=== PATIENT | male | born 1980 | race Caucasian/White ===

== ENCOUNTER 2020-05-14 10:33 | Emergency (ER) | payer BC ==
--- NOTE | 2020-05-14 10:50 | EDM.PDOC ---
ED HPI GENERAL MEDICAL PROBLEM - General Chief Complaint: Chest Pain Stated Complaint: CHEST PAIN Time Seen by Provider: 05/14/20 10:45 Source of Information: Reports: Patient History Limitations: Reports: No Limitations - History of Present Illness INITIAL COMMENTS - FREE TEXT/NARRATIVE: HISTORY AND PHYSICAL: History of present illness: Patient is a 39-year-old male who presents to the emergency room with complaints of chest heaviness prior to arrival. He states he was sitting down when he felt like he could not get in a deep breath, describing it as a heaviness sensation in his chest. He does have a history of panic attacks although states he has not had any for over 7 years. States the sensation is similar but "could not be sure". Shortly after he did feel lightheaded, felt short of breath and called EMS. EMS gave the patient 4 baby aspirin and put 2 L per nasal cannula on due to his complaint of shortness of breath. Upon arrival to the emergency room he states he feels better and is pain-free. Review of systems: As per history of present illness and below otherwise all systems reviewed and negative. Past medical history: As per history of present illness and as reviewed below otherwise noncontributory. Surgical history: As per history of present illness and as reviewed below otherwise noncontributory. Social history: See social history for further information Family history: As per history of present illness and as reviewed below otherwise noncontributory. Physical exam: General: Well developed and well nourished. Alert and orientated x 3. Nontoxic in appearance and in no acute distress. Vital signs are stable and have been reviewed by me. Nursing notes were reviewed. HEENT: Atraumatic, normocephalic, pupils equal and reactive bilaterally, negative for conjunctival pallor or scleral icterus, mucous membranes moist, TMs normal bilaterally, throat clear, neck supple, nontender, trachea midline. No drooling or trismus noted. No meningeal signs. No hot potato voice noted. Lungs: Clear to auscultation, breath sounds equal bilaterally, chest nontender. Normal work of breathing, no accessory muscles used. Heart: S1S2, regular rate and rhythm without overt murmur Abdomen: Soft, nondistended, nontender. Negative for masses or hepatosplenomegaly. Negative for costovertebral tenderness. Pelvis: Stable nontender. Genitourinary: Deferred. Rectal: Deferred. Skin: Intact, warm, dry. No lesions or rashes noted. Hematologic: No petechiae or purpra. Mucosa appropriate color and normal nail bed color and refill. Extremities: Atraumatic, moves all extremities per self without difficulty or deficits, negative for cords or calf pain. Neurovascular unremarkable. Neuro: Awake, alert, oriented. Cranial nerves II through XII unremarkable. Cerebellum unremarkable. Motor and sensory unremarkable throughout. Exam nonfocal. Psychiatric: Mood and affect are appropriate. Normal thought process. Answering questions appropriately. Notes: 4 baby aspirin was given [employer]. EKG shows no acute findings. Patients is symptom free/pain free. Lab work is unremarkable. CXR unremarkable. Heart score is 1; low. I have spoken with the patient/caregiver and discussed today's findings, in addition to providing specific details for plan of care. Reassessment at the time of disposition demonstrates that the patient is in no acute distress. The patient has remained stable throughout the entire ED visit and is without objective evidence for acute process requiring urgent intervention or hospitalization. The patient is stable for discharge, counseling was provided and we discussed in great detail signs and symptoms that would prompt them to return to the Emergency Department. Medication, follow up and supportive care measures were reviewed and discussed. Voices understanding and is agreeable to plan of care. Denies any further questions or concerns at this time. Diagnostics: CBC, CMP, EKG, Troponin, CXR Therapeutics: None Prescription: None Impression: Nonspecific chest pain Plan: 1. Today your chest x-ray, cardiac enzymes/lab work, EKG were normal. 2. Take your Xanax as needed. Alternate Tylenol and Ibuprofen as needed for pain. 3. We encourage you to follow up with your primary care provider and/or recommended specialist in the next few days for re-evaluation and further care/management. If your symptoms should worsen, new symptoms develop or any of the signs and symptoms we discussed should arise please return to the emergency room or call 911 (if needed). Definitive disposition and diagnosis as appropriate pending reevaluation and review of above. Chest Pain Score (Numeric/FACES): 2 - Related Data Allergies Allergy/AdvReac Type Severity Reaction Status Date / Time amoxicillin Allergy Cannot Verified 05/14/20 10:41 Remember Home Meds: Home Meds ALPRAZolam [Xanax] 1 tab PO ASDIRECTED 05/14/20 [History] Empagliflozin [Jardiance] 1 tab PO DAILY 05/14/20 [History] Venlafaxine HCl 100 mg PO DAILY 05/14/20 [History] lisinopriL [Lisinopril] 40 mg PO DAILY 05/14/20 [History] metFORMIN HCl [Metformin HCl] 2,000 mg PO DAILY 05/14/20 [History] ED ROS GENERAL - Review of Systems Review Of Systems: Comprehensive ROS is negative, except as noted in HPI. ED EXAM, GENERAL - Physical Exam Exam: See Below (See dictation) Course - Vital Signs Last Recorded V/S: Last Vital Signs Temp 97.5 F 05/14/20 10:45 Pulse 95 05/14/20 11:52 Resp 16 05/14/20 11:52 BP 118/74 05/14/20 11:52 Pulse Ox 98 05/14/20 11:52 - Orders/Labs/Meds Orders: Active Orders 24 hr Category Date Time Status EKG Documentation Completion [RC] STAT Care 05/14/20 10:40 Active Labs: Laboratory Tests 05/14/20 05/14/20 Range/Units 10:54 10:54 WBC 6.33 (4.0-11.0) K/uL RBC 5.99 H (4.50-5.90) M/uL Hgb 18.0 H (13.0-17.0) g/dL Hct 50.0 (38.0-50.0) % MCV 83.5 (80.0-98.0) fL MCH 30.1 (27.0-32.0) pg MCHC 36.0 (31.0-37.0) g/dL RDW Std Deviation 38.9 (28.0-62.0) fl RDW Coeff of Sylvester 13 (11.0-15.0) % Plt Count 226 (150-400) K/uL MPV 9.70 (7.40-12.00) fL Neut % (Auto) 59.5 (48.0-80.0) % Lymph % (Auto) 33.2 (16.0-40.0) % Bates % (Auto) 5.4 (0.0-15.0) % Eos % (Auto) 1.3 (0.0-7.0) % Baso % (Auto) 0.6 (0.0-1.5) % Neut # (Auto) 3.8 (1.4-5.7) K/uL Lymph # (Auto) 2.1 (0.6-2.4) K/uL Bates # (Auto) 0.3 (0.0-0.8) K/uL Eos # (Auto) 0.1 (0.0-0.7) K/uL Baso # (Auto) 0.0 (0.0-0.1) K/uL Nucleated RBC % 0.0 /100WBC Nucleated RBCs # 0 K/uL Sodium 138 (136-148) mmol/L Potassium 3.8 (3.5-5.1) mmol/L Chloride 102 (98-107) mmol/L Carbon Dioxide 22.6 (21.0-32.0) mmol/L BUN 17 (7.0-18.0) mg/dL Creatinine 0.7 L (0.8-1.3) mg/dL Est Cr Clr Drug Dosing 149.19 mL/min Estimated GFR (MDRD) > 60.0 ml/min Glucose 271 H (74-106) mg/dL Calcium 9.7 (8.5-10.1) mg/dL Total Bilirubin 1.8 H (0.2-1.0) mg/dL AST 23 (15-37) IU/L ALT 52 (14-63) IU/L Alkaline Phosphatase 65 (46-116) U/L Troponin I < 0.050 (0.000-0.056) ng/mL Total Protein 7.3 (6.4-8.2) g/dL Albumin 4.5 (3.4-5.0) g/dL Globulin 2.8 (2.6-4.0) g/dL Albumin/Globulin Ratio 1.6 (0.9-1.6) Departure - Departure Time of Disposition: 11:55 Disposition: Home, Self-Care 01 Clinical Impression: Nonspecific chest pain Referrals: PCP,Unobtain [Primary Care Provider] - Forms: ED Department Discharge Additional Instructions: The following information is given to patients seen in the emergency department who are being discharged to home. This information is to outline your options for follow-up care. We provide all patients seen in our emergency department with a follow-up referral. The need for follow-up, as well as the timing and circumstances, are variable depending upon the specifics of your emergency department visit. If you don't have a primary care physician on staff, we will provide you with a referral. We always advise you to contact your personal physician following an emergency department visit to inform them of the circumstance of the visit and for follow-up with them and/or the need for any referrals to a consulting sp ecialist. The emergency department will also refer you to a specialist when appropriate. This referral assures that you have the opportunity for follow-up care with a specialist. All of these measure are taken in an effort to provide you with optimal care, which includes your follow-up. Under all circumstances we always encourage you to contact your private physician who remains a resource for coordinating your care. When calling for follow-up care, please make the office aware that this follow-up is from your recent emergency room visit. If for any reason you are refused follow-up, please contact the [facility] Emergency Department at and asked to speak to the emergency department charge nurse. [facility] Primary [facility] [address] [place] [id number] [id number] Thank you for choosing the [facility] emergency department in [place] for your medical needs today. It was a pleasure caring for you. Today you were seen in the emergency department for chest pain. 1. Today your lab work and chest x-ray were normal. Gentle heat and/or ice to the painful areas. 2. Alternate Tylenol and Ibuprofen for pain. 3. We encourage you to follow up with your primary care provider and/or recommended specialist in the next few days for re-evaluation and further care/management. If your symptoms should worsen, new symptoms develop or any of the signs and symptoms we discussed should arise please return to the emergency room or call 911 (if needed). Sepsis Event Note (ED) - Focused Exam Vital Signs: Vital Signs Temp Pulse Resp BP Pulse Ox 05/14/20 11:52 95 16 118/74 98 05/14/20 10:45 97.5 F 96 17 124/82 97 - My Orders Last 24 Hours: My Active Orders 05/14/20 10:40 EKG Documentation Completion [RC] STAT - Assessment/Plan Last 24 Hours: My Active Orders 05/14/20 10:40 EKG Documentation Completion [RC] STAT
--- NOTE | 2020-05-14 11:04 | PCM.SN.2 ---
- Free Text/Narrative Note: Heart rate = 84 bpm, normal sinus rhythm, normal QRS interval, no STEMI. EKG and rhythm strip interpreted by me at 1043
--- NOTE | 2020-05-14 11:44 | CR ---
INDICATION: Chest pain. TECHNIQUE: Chest 1 views COMPARISON: May 07, 2013. FINDINGS: Cardiovascular and mediastinum: Heart size and vasculature are normal in caliber and appearance. Lungs and pleural spaces: Lungs are clear. No sign of infiltrate or mass. No sign of pleural effusion. No pneumothorax. Bones and soft tissues: No significant findings. IMPRESSION: No acute findings and no significant changes from the prior exam. Dictated by Zuhair Leonard MD @ May 14 2020 11:42AM Signed by Dr. Zuhair Leonard @ May 14 2020 11:43AM
[2020-05-14 11:49] LABS: BLOOD UREA NITROGEN,BUN 17 mg/dL (7.0-18.0); CARBON DIOXIDE,CO2 22.6 mmol/L (21.0-32.0); CHLORIDE,CL 102 mmol/L (98-107); GLUCOSE RANDOM 271 mg/dL (74-106); POTASSIUM,K 3.8 mmol/L (3.5-5.1); SODIUM,NA 138 mmol/L (136-148)
== END 2020-05-14 12:09 | disposition home or self-care (01) ==
LOC: MW.ED 10:33
DX: R07.9 Chest pain, unspecified (principal); Z88.0 Allergy status to penicillin; Z79.84 Long term (current) use of oral hypoglycemic drugs; Z79.899 Other long term (current) drug therapy
CPT/HCPCS: 36415; 71045; 71045-26; 80053; 84484; 85025; 93005; 99285-25

== ENCOUNTER 2020-08-12 17:58 | Emergency (ER) | payer BC ==
[2020-08-12] MEDS ORDERED: Tetracaine HCl/PF 0.5% 4 ML Bottle EYELF ONE (18:51)
--- NOTE | 2020-08-12 19:14 | EDM.PDOC ---
ED HPI GENERAL MEDICAL PROBLEM - General Chief Complaint: ENT Problem Stated Complaint: METAL INSIDE L/EYE Time Seen by Provider: 08/12/20 18:42 Source of Information: Reports: Patient History Limitations: Reports: No Limitations - History of Present Illness INITIAL COMMENTS - FREE TEXT/NARRATIVE: Presents reporting foreign body left eye. The patient states that yesterday he was working underneath a vehicle. He was wearing safety glasses. There was metal shavings coming down from his work space. Last evening he began feeling a foreign body sensation and scratchiness of his left eye. Today it has been red, irritated and he looked in the mirror and saw a speck over the iris at the 10 o'clock position. left eye Pain Score (Numeric/FACES): 7 - Related Data Allergies Allergy/AdvReac Type Severity Reaction Status Date / Time amoxicillin Allergy Cannot Verified 08/12/20 18:12 Remember Home Meds: Home Meds ALPRAZolam [Xanax] 1 tab PO ASDIRECTED 05/14/20 [History] Empagliflozin [Jardiance] 1 tab PO DAILY 05/14/20 [History] Venlafaxine HCl 100 mg PO DAILY 05/14/20 [History] lisinopriL [Lisinopril] 40 mg PO DAILY 05/14/20 [History] metFORMIN HCl [Metformin HCl] 2,000 mg PO DAILY 05/14/20 [History] Neomycin/Polymyxin B/Dexametha [Poinyx-Pptco-Ifeyinra Eye Drop] 3 drop OP QID #1 drops.susp 08/12/20 [Rx] Past Medical History Cardiovascular History: Reports: Hypertension Psychiatric History: Reports: Anxiety Endocrine/Metabolic History: Reports: Diabetes, Type II - Infectious Disease History Infectious Disease History: Reports: None - Past Surgical History Musculoskeletal Surgical History: Reports: Other (See Below) Other Musculoskeletal Surgeries/Procedures:: left wrist surgery Social & Family History - Family History Family Medical History: No Pertinent Family History - Tobacco Use Tobacco Use Status *Q: Current Every Day Tobacco User Years of Tobacco use: 20 Packs/Tins Daily: 1 - Caffeine Use Caffeine Use: Reports: Energy Drinks, Soda - Recreational Drug Use Recreational Drug Use: No ED ROS ENT - Review of Systems Review Of Systems: Comprehensive ROS is negative, except as noted in HPI. ED EXAM, ENT - Physical Exam Exam: See Below Exam Limited By: No Limitations General Appearance: Alert, No Apparent Distress Eye Exam: Left Eye: Foreign Body (speck 10 o'clock over iris os), Bilateral Eye: EOMI, Other (20/30 os, 20/30 od, 20/25 ou) Ears: Normal External Exam Nose: Normal Inspection Mouth/Throat: Normal Inspection Head: Atraumatic, Normocephalic Neck: Normal Inspection Respiratory/Chest: No Respiratory Distress Neurological: Alert, Oriented ED EYE PROCEDURE - Eye Procedure Alcaine Drops Administered: No (tetracaine) Eye FB Removal: Removal w/ Needle Eye Irrigated w/ Saline (ccs): 20 Antibiotic Oinment/Drps Admin: Left Eye (RX) Course - Vital Signs Last Recorded V/S: Last Vital Signs Temp 36.5 C 08/12/20 18:13 Pulse 102 H 08/12/20 18:13 Resp 18 08/12/20 18:13 BP Pulse Ox 96 08/12/20 18:13 - Orders/Labs/Meds Meds: Medications Discontinued Medications Generic Name Dose Route Start Last Admin Trade Name Rissa PRN Reason Stop Dose Admin Tetracaine HCl 1 ml 08/12/20 18:51 08/12/20 18:54 Tetracaine 0.5% Steri-Unit Mahsa EYELF 08/12/20 18:52 1 dose ASDIRECTED ONE Administration Departure - Departure Time of Disposition: 19:10 Disposition: Home, Self-Care 01 Condition: Good Clinical Impression: Foreign body in eye Qualifiers: Encounter type: initial encounter Laterality: left Qualified Code(s): T15.92XA - Foreign body on external eye, part unspecified, left eye, initial encounter - Discharge Information Prescriptions: Neomycin/Polymyxin B/Dexametha [Fvdtpw-Eqqac-Dudvtsoz Eye Drop] 3 drop OP QID #1 drops.susp Referrals: Rafael Garcia MD [Primary Care Provider] - Eric Samuels MD [Ordering Only Provider] - Additional Instructions: The following information is given to patients seen in the emergency department who are being discharged to home. This information is to outline your options for follow-up care. We provide all patients seen in our emergency department with a follow-up referral. The need for follow-up, as well as the timing and circumstances, are variable depending upon the specifics of your emergency department visit. If you don't have a primary care physician on staff, we will provide you with a referral. We always advise you to contact your personal physician following an emergency department visit to inform them of the circumstance of the visit and for follow-up with them and/or the need for any referrals to a consulting specialist. The emergency department will also refer you to a specialist when appropriate. This referral assures that you have the opportunity for follow-up care with a specialist. All of these measure are taken in an effort to provide you with optimal care, which includes your follow-up. Under all circumstances we always encourage you to contact your private physician who remains a resource for coordinating your care. When calling for follow-up care, please make the office aware that this follow-up is from your recent emergency room visit. If for any reason you are refused follow-up, please contact the [facility] Emergency Department at and asked to speak to the emergency department charge nurse. 1. Eyedrops 3 drops left eye 4 times a day. Start tonight as soon as you cook pickled meat the drops at the pharmacy. 2. Leave to 2 tabs a.m. and p.m. or ibuprofen 2-3 tabs 3 times daily as needed for pain 3. Continue the good habits you have established and wear your safety glasses! 4. Follow up at ophthalmology for continued irritation, redness, purulent drainage report promptly Sepsis Event Note (ED) - Evaluation Sepsis Screening Result: No Definite Risk - Focused Exam Vital Signs: Vital Signs Temp Pulse Resp Pulse Ox 08/12/20 18:13 36.5 C 102 H 18 96
== END 2020-08-12 19:25 | disposition home or self-care (01) ==
LOC: MW.ED 17:58
DX: T15.92XA Foreign body on external eye, part unspecified, left eye, initial encounter (principal); E11.9 Type 2 diabetes mellitus without complications; I10 Essential (primary) hypertension; Z72.0 Tobacco use; Z88.0 Allergy status to penicillin; Z79.899 Other long term (current) drug therapy; Z79.84 Long term (current) use of oral hypoglycemic drugs
CPT/HCPCS: 65205; 99283-25

== ENCOUNTER 2020-10-25 19:56 | Emergency (ER) | payer BC ==
--- NOTE | 2020-10-25 21:09 | CR ---
Indication: Injury, pain. Technique: Right shoulder 3 views. Comparison: None. Findings: No acute fracture or dislocation. Mild degenerative changes of the acromioclavicular joint. The visualized right lung is clear. Soft tissues are unremarkable. Impression: 1. No acute findings. 2. Mild degenerative changes of the acromioclavicular joint. Dictated by Jaci Quintero MD @ Oct 25 2020 9:06PM Signed by Dr. Jaci Quintero @ Oct 25 2020 9:08PM
[2020-10-25] MEDS ORDERED: Acetaminophen/HYDROcodone 325-5 MG Tab PO ONE (21:12)
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
--- NOTE | 2020-10-25 22:07 | CR ---
INDICATION: Elbow pain. Injury. TECHNIQUE: Two views right elbow. FINDINGS: Moderate sized right elbow effusion with elevation of the anterior fat pad of the right elbow and visualization of the posterior fat pad. Minimally displaced acute fracture involving the coronoid process of the proximal ulna. No other fracture or dislocation involving the right elbow. Mild soft tissue swelling right elbow posteriorly. Right elbow otherwise negative. Dictated by Raheel Voss MD @ Oct 25 2020 10:04PM Signed by Dr. Raheel Voss @ Oct 25 2020 10:07PM
== END 2020-10-25 22:39 | disposition home or self-care (01) ==
LOC: MW.ED 19:56
DX: S52.041A Displaced fracture of coronoid process of right ulna, initial encounter for closed fracture (principal); I10 Essential (primary) hypertension; E11.9 Type 2 diabetes mellitus without complications; Z79.84 Long term (current) use of oral hypoglycemic drugs; Z88.0 Allergy status to penicillin; Z79.899 Other long term (current) drug therapy; X50.1XXA Overexertion from prolonged static or awkward postures, initial encounter
CPT/HCPCS: 29105; 73030; 73070; 99283; A9270

== ENCOUNTER 2025-02-23 21:19 | Emergency (ER) | payer BC ==
[2025-02-23 23:34] LABS: BASOPHILS ABSOLUTE AUTO 0.06 K/uL (0.00-0.20); BASOPHILS PERCENT AUTO 0.7 % (0.0-1.0); EOSINOPHILS ABSOLUTE AUTO 0.13 K/uL (0.00-0.45); EOSINOPHILS PERCENT AUTO 1.5 % (0.0-6.0); IMMATURE GRAN ABSOLUTE AUTO 0.02 K/uL (0.00-0.05); IMMATURE GRAN PERCENT AUTO 0.2 % (0.0-0.4); LYMPHOCYTES ABSOLUTE AUTO 3.20 K/uL (1.00-4.80); LYMPHOCYTES PERCENT AUTO 36.7 % (24.0-44.0); MEAN PLATELET VOLUME 8.8 fL (9.4-12.4); MONOCYTES ABSOLUTE AUTO 0.65 K/uL (0.00-0.80); MONOCYTES PERCENT AUTO 7.5 % (0.0-8.0); NEUTROPHILS ABSOLUTE AUTO 4.66 K/uL (1.80-7.70); NEUTROPHILS PERCENT AUTO 53.4 % (41.0-71.0); NRBC ABSOLUTE 0.00 K/uL (0.00-0.02); NRBC PERCENT 0.0 /100WBC (0.0-0.2); PLATELET COUNT,PLT 266 K/uL (150-400); RED BLOOD CELL COUNT 5.59 M/uL (4.52-5.90); WHITE BLOOD CELL COUNT,WBC 8.72 K/uL (3.9-11.3)
[2025-02-24 00:06] LABS: A/G RATIO 1.5 (0.9-1.6); ALANINE AMINOTRANSFERASE,ALT 44 IU/L (14-63); ASPARTATE AMNIOTRANSFERASE,AST 15 IU/L (15-37); BILIRUBIN TOTAL 1.2 mg/dL (0.2-1.0); BLOOD UREA NITROGEN,BUN 22 mg/dL (7.0-18.0); CARBON DIOXIDE,CO2 26.5 mmol/L (21.0-32.0); CHLORIDE,CL 102 mmol/L (98-107); CREATININE 1.0 mg/dL (0.8-1.3); EST CRCL DRUG DOSING (CG) 102.49 mL/min; ESTIMATED GFR 96 mL/min (>60); ETHANOL BLOOD MEDICAL < 3.0 mg/dL; GLUCOSE RANDOM 192 mg/dL (74-106); POTASSIUM,K 4.2 mmol/L (3.5-5.1); PROTEIN TOTAL,TP 7.2 g/dL (6.4-8.2); SODIUM,NA 138 mmol/L (136-148); TSH ULTRASENSITIVE 1.42 uIU/mL (0.36-3.74)
[2025-02-24 00:12] LABS: APPEARANCE,URINE CLEAR; GLUCOSE,URINE >=1000 mg/dL (NEGATIVE); OCCULT BLOOD,URINE NEGATIVE (NEGATIVE)
[2025-02-24 00:25] LABS: EPITHELIAL CELLS,URINE RARE (NONE-FEW)
[2025-02-24 00:45] LABS: AMPHETAMINES SCREEN, URINE NEGATIVE (CUTOFF=500); BUPRENORPHINE SCREEN,URINE NEGATIVE (CUTOFF=10); METHADONE SCREEN, URINE NEGATIVE (CUTOFF=200); METHAMPHETAMINES SCREEN, URINE NEGATIVE (CUTOFF=500); OXYCODONE SCREEN,URINE NEGATIVE (CUT0FF=100); PCP SCREEN,URINE NEGATIVE (CUTOFF=25); THC SCREEN,URINE 20 NG/ML PRESUMPTIVE POSITIVE (CUTOFF=50)
== END 2025-02-24 09:31 ==
LOC: MW.ED 21:19
DX: R45.851 Suicidal ideations (principal); I10 Essential (primary) hypertension; E11.9 Type 2 diabetes mellitus without complications; F17.210 Nicotine dependence, cigarettes, uncomplicated; Z88.0 Allergy status to penicillin; Z79.899 Other long term (current) drug therapy; Z79.84 Long term (current) use of oral hypoglycemic drugs
CPT/HCPCS: 36415; 80053; 80143; 80179; 80305; 80307; 81001; 83735; 84443; 85025; 93005; 99285; A9270; 93010

== ENCOUNTER 2025-06-12 19:49 | Inpatient (IN) | payer SELFPAY ==
[2025-06-12 20:19] LABS: APPEARANCE,URINE CLEAR; GLUCOSE,URINE >=1000 mg/dL (NEGATIVE); OCCULT BLOOD,URINE NEGATIVE (NEGATIVE)
[2025-06-12] MEDS ORDERED: Sodium Chloride 0.9% 2.5 ML Syringe FLUSH PRN ×2 (20:28→22:37)
[2025-06-12] MEDS ORDERED: Sodium Chloride 0.9% 10 ML Syringe FLUSH PRN ×2 (20:28→22:37)
[2025-06-12] MEDS: Iopamidol 755 MG/ML 500 ML Multipack Bottle IVPUSH STA (20:43)
[2025-06-12 20:59] LABS: BASOPHILS ABSOLUTE AUTO 0.07 K/uL (0.00-0.20); BASOPHILS PERCENT AUTO 0.4 % (0.0-1.0); EOSINOPHILS ABSOLUTE AUTO 0.18 K/uL (0.00-0.45); EOSINOPHILS PERCENT AUTO 1.1 % (0.0-6.0); IMMATURE GRAN ABSOLUTE AUTO 0.06 K/uL (0.00-0.05); IMMATURE GRAN PERCENT AUTO 0.4 % (0.0-0.4); LYMPHOCYTES ABSOLUTE AUTO 3.33 K/uL (1.00-4.80); LYMPHOCYTES PERCENT AUTO 19.8 % (24.0-44.0); MEAN PLATELET VOLUME 9.3 fL (9.4-12.4); MONOCYTES ABSOLUTE AUTO 1.01 K/uL (0.00-0.80); MONOCYTES PERCENT AUTO 6.0 % (0.0-8.0); NEUTROPHILS ABSOLUTE AUTO 12.13 K/uL (1.80-7.70); NEUTROPHILS PERCENT AUTO 72.3 % (41.0-71.0); NRBC ABSOLUTE 0.00 K/uL (0.00-0.02); NRBC PERCENT 0.0 /100WBC (0.0-0.2); PLATELET COUNT,PLT 281 K/uL (150-400); RED BLOOD CELL COUNT 5.76 M/uL (4.52-5.90); WHITE BLOOD CELL COUNT,WBC 16.78 K/uL (3.9-11.3)
[2025-06-12 21:11] LABS: A/G RATIO 1.4 (0.9-1.6); ALANINE AMINOTRANSFERASE,ALT 46.0 IU/L (14-63); ASPARTATE AMNIOTRANSFERASE,AST 14.0 IU/L (15-37); BILIRUBIN TOTAL 0.6 mg/dL (0.2-1.0); BLOOD UREA NITROGEN,BUN 24.0 mg/dL (7.0-18.0); CARBON DIOXIDE,CO2 27.5 mmol/L (21.0-32.0); CHLORIDE,CL 99.0 mmol/L (98-107); CREATININE 0.8 mg/dL (0.8-1.3); EST CRCL DRUG DOSING (CG) 128.11 mL/min; ESTIMATED GFR 113.0 mL/min (>60); GLUCOSE RANDOM 216.0 mg/dL (74-106); POTASSIUM,K 3.9 mmol/L (3.5-5.1); PROTEIN TOTAL,TP 7.3 g/dL (6.4-8.2); SODIUM,NA 135.0 mmol/L (136-148)
[2025-06-12 21:15] LABS: EPITHELIAL CELLS,URINE RARE (NONE-FEW)
[2025-06-12] MEDS ORDERED: Naloxone 0.4 MG/ML SDV IVPUSH PRN (21:46)
[2025-06-12] MEDS: cefTRIAXone 2 GM in Water For Injection, Sterile 20 ML IVPUSH ONE (21:58)
[2025-06-12] MEDS: Ondansetron 4 MG/2 ML SDV IVPUSH ONE (21:58)
[2025-06-12] MEDS ORDERED: 50% Dextrose in Water 50 ML Syringe IVPUSH PRN (22:35)
[2025-06-13 05:57] LABS: MEAN PLATELET VOLUME 9.0 fL (9.4-12.4); NRBC ABSOLUTE 0.00 K/uL (0.00-0.02); NRBC PERCENT 0.0 /100WBC (0.0-0.2); PLATELET COUNT,PLT 211 K/uL (150-400); RED BLOOD CELL COUNT 5.51 M/uL (4.52-5.90); WHITE BLOOD CELL COUNT,WBC 9.26 K/uL (3.9-11.3)
[2025-06-13 06:23] LABS: A/G RATIO 1.3 (0.9-1.6); ALANINE AMINOTRANSFERASE,ALT 37.0 IU/L (14-63); ASPARTATE AMNIOTRANSFERASE,AST 17.0 IU/L (15-37); BILIRUBIN TOTAL 0.9 mg/dL (0.2-1.0); BLOOD UREA NITROGEN,BUN 16.0 mg/dL (7.0-18.0); CARBON DIOXIDE,CO2 26.7 mmol/L (21.0-32.0); CHLORIDE,CL 104.0 mmol/L (98-107); CREATININE 0.8 mg/dL (0.8-1.3); EST CRCL DRUG DOSING (CG) 128.11 mL/min; GLUCOSE RANDOM 196.0 mg/dL (74-106); POTASSIUM,K 3.9 mmol/L (3.5-5.1); PROTEIN TOTAL,TP 6.2 g/dL (6.4-8.2); SODIUM,NA 138.0 mmol/L (136-148)
[2025-06-13 06:24] LABS: ESTIMATED GFR 113.0 mL/min (>60)
[2025-06-13] MEDS: Ondansetron 4 MG/2 ML SDV IVPUSH PRN (11:24)
== END 2025-06-13 17:50 | disposition home or self-care (01) | DRG 390 ==
LOC: MW.ED 19:49 → MW.MS 21:49
PROVIDERS: ADMIT Internal Medicine; ATTEND Internal Medicine
DX: K56.600 Partial intestinal obstruction, unspecified as to cause (principal); I10 Essential (primary) hypertension; E11.9 Type 2 diabetes mellitus without complications; F41.9 Anxiety disorder, unspecified; F32.A Depression, unspecified; H54.7 Unspecified visual loss; F43.10 Post-traumatic stress disorder, unspecified; F12.90 Cannabis use, unspecified, uncomplicated; K52.9 Noninfective gastroenteritis and colitis, unspecified; Z88.1 Allergy status to other antibiotic agents; Z79.84 Long term (current) use of oral hypoglycemic drugs; Z79.899 Other long term (current) drug therapy; Z98.890 Other specified postprocedural states; Z87.891 Personal history of nicotine dependence
CPT/HCPCS: 36415; 74177; 74177-26; 74250; 74250-26; 80053; 81001; 82947; 83605; 83690; 83735; 85025; 85027; 96360; 99222; 99239; 99285; 99285-25; A4216; A9270-GY; J0696; J1815-GY; J2270; J2405; J7030; Q9967